=== PATIENT | female | born 1970 | race Hispanic/Latino ===

== ENCOUNTER 2017-04-05 23:11 | Emergency (ER) | payer OTHER, MEDICARE ==
[~2017-04-05 23:11] MED LIST: AMLO10TA2 PO; ASPI-1181 PO; CALC-866 PO; CYCL10TA7 PO; DIPH50CA4 PO; ESCI20TA36 PO; FERR-82 PO; HYDR25TA PO; LEVO112T7 PO; LISI40TA4 PO; METF-526 PO; SIMV20TA6 PO; TAMS0.4C32 PO; TRAM50TA4 PO; ZOLP10TA6 PO
[2017-07-09] MEDS ORDERED: NAPR-1023 PO (09:07)
== END 2017-04-05 23:54 | disposition home or self-care (01) ==
LOC: EDH 23:11
DX: H60.532 Acute contact otitis externa, left ear (principal); I10 Essential (primary) hypertension; E78.5 Hyperlipidemia, unspecified; E03.9 Hypothyroidism, unspecified; Z88.6 Allergy status to analgesic agent

== ENCOUNTER 2017-07-11 05:51 | Day surgery (SDC) | payer OTHER, MEDICARE ==
[2017-07-09 08:48] VITALS: BP 128/67
[2017-07-11] VITALS (16 sets, daily range): BP systolic 98–127; BP diastolic 51–78
[~2017-07-11] VITALS: Ht 156.2 cm; Wt 137.3 kg
[~2017-07-11 05:51] MED LIST changes: +CEFAZOLIN SODIUM 1 GM VIAL IVP SCH; -CYCL10TA7 PO; -DIPH50CA4 PO; -FERR-82 PO; -METF-526 PO; +NAPR-1023 PO; -TAMS0.4C32 PO
[2017-07-11] MEDS ORDERED: LACTATED RINGERS 1000ML 1,000 ML IV ONE (06:14)
[2017-07-11] MEDS ORDERED: LIDOCAINE HCL-MPF 0.5% 50ML VIAL IJ ONE (06:51)
[2017-07-11] MEDS ORDERED: ONDANSETRON HCL 4 MG/2 ML VIAL ONE (06:52)
[2017-07-11] MEDS ORDERED: NEOSTIGMINE 5MG/5ML SYR IV ONE (06:52)
[2017-07-11] MEDS ORDERED: GLYCOPYRROLATE 0.2 MG/ML 5 ML VIAL ONE (06:52)
[2017-07-11] MEDS ORDERED: LIDOCAINE PF 2% 5ML ABBOJECT ONE (06:52)
[2017-07-11] MEDS ORDERED: DEXAMETHASONE SOD PHOSPHATE 10MG/ML 1ML VIAL ONE (06:52)
[2017-07-11] MEDS ORDERED: MIDAZOLAM HCL 1 MG/ML 2ML VIAL ONE (06:53)
[2017-07-11] MEDS ORDERED: PROPOFOL 10 MG/ML 20ML VIAL IV ONE (06:53)
[2017-07-11] MEDS ORDERED: FENTANYL CITRATE PF 50 MCG/1 ML 2ML VIAL ONE ×2 (06:54→07:43)
[2017-07-11] MEDS ORDERED: ONDANSETRON HCL MDV 20ML 2 MG/ML VIAL ONE (07:17)
== END 2017-07-11 09:55 | disposition home or self-care (01) ==
LOC: DAH 05:51
PROVIDERS: ATTEND Neurological Surgery
DX: G56.01 Carpal tunnel syndrome, right upper limb (principal); G47.33 Obstructive sleep apnea (adult) (pediatric); E66.01 Morbid (severe) obesity due to excess calories; I10 Essential (primary) hypertension; M19.90 Unspecified osteoarthritis, unspecified site; F41.9 Anxiety disorder, unspecified; E03.9 Hypothyroidism, unspecified; Z79.899 Other long term (current) drug therapy; Z87.442 Personal history of urinary calculi; Z79.82 Long term (current) use of aspirin
CPT/HCPCS: 64721; 81025; A4218; J0690; J1100; J2001; J2250; J2405; J2704; J2710; J3010 ×2; J3490 ×2; J7120

== ENCOUNTER 2017-08-15 05:56 | Day surgery (SDC) | payer OTHER, MEDICARE ==
[2017-08-10 14:42] VITALS: BP 143/67
[2017-08-15] VITALS (12 sets, daily range): BP systolic 95–137; BP diastolic 44–86
[~2017-08-15] VITALS: Ht 152.4 cm; Wt 136.7 kg
[~2017-08-15 05:56] MED LIST changes: -CEFAZOLIN SODIUM 1 GM VIAL IVP SCH; -NAPR-1023 PO
[2017-08-15] MEDS ORDERED: CEFAZOLIN SODIUM 1 GM VIAL ONE (06:28)
[2017-08-15] MEDS ORDERED: LACTATED RINGERS 1000ML 1,000 ML IV ONE (06:28)
[2017-08-15] MEDS ORDERED: PROPOFOL 10 MG/ML 20ML VIAL IV ONE (07:16)
[2017-08-15] MEDS ORDERED: MIDAZOLAM HCL 1 MG/ML 2ML VIAL ONE (07:16)
[2017-08-15] MEDS ORDERED: FENTANYL CITRATE PF 50 MCG/1 ML 2ML VIAL ONE (07:17)
[2017-08-15] MEDS ORDERED: LIDOCAINE HCL MDV 0.5% 50ML VIAL IJ ONE (07:20)
[2017-08-15] MEDS ORDERED: WATER FOR INJECTION,STERILE 20 ML VIAL IJ ONE (08:00)
[2017-08-15] MEDS ORDERED: CEFAZOLIN SODIUM 1 GM VIAL IVP ONE (08:00)
== END 2017-08-15 09:30 | disposition home or self-care (01) ==
LOC: DAH 05:56
PROVIDERS: ATTEND Neurological Surgery
DX: G56.02 Carpal tunnel syndrome, left upper limb (principal); M19.90 Unspecified osteoarthritis, unspecified site; E11.9 Type 2 diabetes mellitus without complications; I10 Essential (primary) hypertension; E66.01 Morbid (severe) obesity due to excess calories; E66.9 Obesity, unspecified; Z79.899 Other long term (current) drug therapy; Z87.442 Personal history of urinary calculi; Z79.82 Long term (current) use of aspirin; Z68.43 Body mass index [BMI] 50.0-59.9, adult
CPT/HCPCS: 64721; 81025; A4218; J0690; J2250; J2704; J3010; J3490; J7120

== ENCOUNTER 2017-09-07 00:37 | Emergency (ER) | payer OTHER, MEDICARE ==
[2017-09-07] MEDS ORDERED: ACETAMINOPHEN-CODEINE 300/30MG TAB ONE (01:24)
== END 2017-09-07 01:56 | disposition home or self-care (01) ==
LOC: EDH 00:37
DX: S90.31XA Contusion of right foot, initial encounter (principal); E78.5 Hyperlipidemia, unspecified; I10 Essential (primary) hypertension; E03.9 Hypothyroidism, unspecified; Z87.442 Personal history of urinary calculi; Z90.49 Acquired absence of other specified parts of digestive tract; Z88.6 Allergy status to analgesic agent; Z98.890 Other specified postprocedural states; W20.8XXA Other cause of strike by thrown, projected or falling object, initial encounter; Y93.89 Activity, other specified; Y92.098 Other place in other non-institutional residence as the place of occurrence of the external cause; Y99.8 Other external cause status
CPT/HCPCS: 73630

== ENCOUNTER 2017-09-13 17:42 | Emergency (ER) | payer OTHER, MEDICARE | END 2017-09-13 18:14 | disposition home or self-care (01) | LOC: EDH 17:42 | DX: S90.31XA Contusion of right foot, initial encounter (principal); E78.5 Hyperlipidemia, unspecified; I10 Essential (primary) hypertension; E03.9 Hypothyroidism, unspecified; Z90.49 Acquired absence of other specified parts of digestive tract; Z88.6 Allergy status to analgesic agent; W20.8XXA Other cause of strike by thrown, projected or falling object, initial encounter; Y93.89 Activity, other specified; Y92.89 Other specified places as the place of occurrence of the external cause; Y99.8 Other external cause status | CPT/HCPCS: 99282 ==

== ENCOUNTER 2018-06-15 17:08 | Emergency (ER) | payer OTHER, MEDICARE ==
[~2018-06-15 17:08] MED LIST changes: -AMLO10TA2 PO; +AMLO10TA7 PO
[2018-06-15] MEDS ORDERED: ACETAMINOPHEN EXTRA STRENGTH 500 MG TABLET ONE (17:47)
[2018-06-15] MEDS ORDERED: DEXAMETHASONE SOD PHOSPHATE 10MG/ML 1ML VIAL ONE (17:47)
[2018-06-17] MEDS ORDERED: REGADENOSON 0.4 MG/5 ML PF SYG IVP SCH (11:00)
== END 2018-06-15 18:08 | disposition home or self-care (01) ==
LOC: EDH 17:08
DX: M54.31 Sciatica, right side (principal); E78.5 Hyperlipidemia, unspecified; I10 Essential (primary) hypertension; E03.9 Hypothyroidism, unspecified; Z87.442 Personal history of urinary calculi; Z90.49 Acquired absence of other specified parts of digestive tract; Z88.6 Allergy status to analgesic agent
CPT/HCPCS: 96372; 99283; J1100

== ENCOUNTER 2018-07-10 23:14 | Emergency (ER) | payer OTHER, MEDICARE ==
[2018-07-11] MEDS ORDERED: ACETAMINOPHEN-CODEINE 300/30MG TAB ONE (00:55)
== END 2018-07-11 01:07 | disposition home or self-care (01) ==
LOC: EDH 23:14
DX: S63.681A Other sprain of right thumb, initial encounter (principal); S63.591A Other specified sprain of right wrist, initial encounter; E78.5 Hyperlipidemia, unspecified; E03.9 Hypothyroidism, unspecified; I10 Essential (primary) hypertension; F41.9 Anxiety disorder, unspecified; F32.9 Major depressive disorder, single episode, unspecified; Z98.890 Other specified postprocedural states; W18.39XA Other fall on same level, initial encounter; Z88.6 Allergy status to analgesic agent; Y93.01 Activity, walking, marching and hiking; Y92.481 Parking lot as the place of occurrence of the external cause; Y99.8 Other external cause status
CPT/HCPCS: 73090; 73130

== ENCOUNTER → 2018-08-26 | Outpatient (CLI) | payer OTHER, MEDICARE | END | disposition home or self-care (01) | LOC: RAH 08:23 | PROVIDERS: ATTEND Orthopaedic Surgery | DX: S83.241A Other tear of medial meniscus, current injury, right knee, initial encounter (principal); M25.461 Effusion, right knee; X58.XXXA Exposure to other specified factors, initial encounter; Y93.89 Activity, other specified; Y92.89 Other specified places as the place of occurrence of the external cause; Y99.8 Other external cause status | CPT/HCPCS: 73721 ==

== ENCOUNTER 2018-10-18 06:50 | Day surgery (SDC) | payer OTHER, MEDICARE ==
[2018-10-17 15:01] VITALS: BP 119/70
[2018-10-17 15:03] LABS: BASOPHILS % (AUTO) 0.5 % (0.0-5.0); EOSINOPHILS % (AUTO) 1.1 % (0.0-8.0); HEMATOCRIT 40.6 % (36-48); LYMPHOCYTES % (AUTO) 16.1 % (21.0-51.0); MEAN CORPUSCULAR HEMOGLOBIN 26.1 pg (27.0-33.0); MEAN CORPUSCULAR HGB CONC 32.5 g/dL (32.0-36.0); MEAN CORPUSCULAR VOLUME 80.2 fL (79-99); MONOCYTES % (AUTO) 5.5 % (3.0-13.0); NEUTROPHILS % (AUTO) 76.8 % (40.0-77.0); PLATELET COUNT (AUTO) 308 K/uL (130-400); RED BLOOD CELL COUNT(AUTO) 5.06 MIL/uL (4.00-5.50); RED CELL DISTRIBUTION WIDTH 15.3 % (11.0-15.5); WHITE BLOOD COUNT (AUTO) 8.9 K/uL (4.8-10.8)
[2018-10-17 15:19] LABS: CREATININE 0.9 mg/dL (0.5-1.5); POTASSIUM 3.6 mmol/L (3.5-5.1)
[~2018-10-18] VITALS: Ht 149.9 cm; Wt 134.4 kg
[2018-10-18] VITALS (23 sets, daily range): BP systolic 111–162; BP diastolic 55–83
[~2018-10-18 06:50] MED LIST changes: -CALC-866 PO; -ESCI20TA36 PO; +FLUO-126 PO; +OLOP2.5D5 OU
--- NOTE | 2018-10-18 07:20 | NUR ---
POTENTIAL FOR INFECTION: SHAVED ABDOMEN PER NELDA ORDOÑEZ. Addendum: 10/18/18 at 0830 by REGLA HUNTER RN RN CORRECTION: SHAVED RIGHT KNEE / LEG PER CATRINA ORDOÑEZ MA, FOLLOWED BY WIPING WITH JUANITO: 2 % CHLORHEXIDINE GLUCONATE CLOTH PATIENTS PRE-OP SKIN PREP.
[2018-10-18] MEDS ORDERED: LIDOCAINE PF 2% 5ML ABBOJECT ONE (07:39)
[2018-10-18] MEDS ORDERED: ROCURONIUM 10MG/1ML SYR 10 MG/ML ML ONE (07:39)
[2018-10-18] MEDS ORDERED: SUCCINYLCHOLINE 200MG/10ML SYR ONE (07:39)
[2018-10-18] MEDS ORDERED: FENTANYL CITRATE PF 50 MCG/1 ML 2ML VIAL ONE (07:39)
[2018-10-18] MEDS ORDERED: PROPOFOL 10 MG/ML 20ML VIAL IV ONE ×2 (07:39→09:28)
[2018-10-18] MEDS ORDERED: CEFAZOLIN SODIUM 1 GM VIAL ONE (07:58)
[2018-10-18] MEDS ORDERED: LACTATED RINGERS 1000ML 1,000 ML IV ONE (07:58)
[2018-10-18] MEDS ORDERED: CEFAZOLIN 3GM /D5W 100ML 100 ML IV PRN (08:00)
[2018-10-18] MEDS ORDERED: EPHEDRINE SULFATE 50 MG/ML AMPULE ONE (09:06)
[2018-10-18] MEDS ORDERED: GLYCOPYRROLATE 1 MG/5 ML SYRINGE ONE (09:19)
[2018-10-18] MEDS ORDERED: NEOSTIGMINE 5MG/5ML SYR IV ONE ×2 (09:19→09:23)
[2018-10-18] MEDS ORDERED: ONDANSETRON HCL 4 MG/2 ML VIAL ONE (09:20)
[2018-10-18] MEDS ORDERED: MELO-108 PO (09:40)
[2018-10-18] MEDS ORDERED: TRAM50TA4 PO (09:40)
[2018-10-18] MEDS ORDERED: CEPH500B PO (09:40)
[2018-10-18] MEDS ORDERED: MEPERIDINE-PF 25 MG/ML SYG ONE (10:18)
--- NOTE | 2018-10-18 11:05 | NUR ---
RECEIVE PT RECEIVED FROM PACU VIA STRETCHER AWAKE ALERT ORIENTED X3. PT STABLE. NO COMPLAINTS MADE. NOT IN ANY APPARENT DISTRESS. DRESSING TO RIGHT KNEE DRY AND INTACT, NO OOZING OR BLEEDING NOTED. RT KNEE ELEVATED WITH PILLOW. CALL RUTH WITHIN [facility]HRO[facility] FOR FAMILY TO COME IN TO ROOM.
--- NOTE | 2018-10-18 11:50 | NUR ---
DISCHARGE PT DISCHARGED VIA WHEELCHAIR WITH DAUGHTER. PT STABLE. DRESSING TO RIGHT KNEE REMAINS DRY AND INTACT, NO OOZING NOTED, CRUTCHES PROVIDED. DISCHARGE INSTRUCTIONS GIVEN TO DAUGHTER AND PT. BOTH VERBALIZED UNDERSTANDING.
== END 2018-10-18 11:50 | disposition home or self-care (01) ==
LOC: DAH 06:50
PROVIDERS: ATTEND Orthopaedic Surgery
DX: M94.261 Chondromalacia, right knee (principal); E03.9 Hypothyroidism, unspecified; I10 Essential (primary) hypertension; F41.9 Anxiety disorder, unspecified; F32.9 Major depressive disorder, single episode, unspecified; H91.90 Unspecified hearing loss, unspecified ear; Z90.49 Acquired absence of other specified parts of digestive tract; Z98.890 Other specified postprocedural states; G89.29 Other chronic pain; G47.30 Sleep apnea, unspecified; Z99.89 Dependence on other enabling machines and devices; E66.01 Morbid (severe) obesity due to excess calories; Z79.82 Long term (current) use of aspirin; Z79.899 Other long term (current) drug therapy
CPT/HCPCS: 29870; 36415; 80048; 82948; 84703; 85025; A4606; A4649 ×2; A4930; A6223; J0330; J0690; J2001; J2175; J2405; J2704 ×2; J2710 ×2; J3010; J3490 ×2; J7120

== ENCOUNTER 2018-12-05 21:57 | Emergency (ER) | payer OTHER, MEDICARE ==
[~2018-12-05 21:57] MED LIST changes: +CEPH500B PO; +MELO-108 PO
[2018-12-05 22:29] LABS: BASOPHILS % (AUTO) 1.2 % (0.0-5.0); EOSINOPHILS % (AUTO) 1.8 % (0.0-8.0); LYMPHOCYTES % (AUTO) 23.7 % (21.0-51.0); MEAN CORPUSCULAR HEMOGLOBIN 25.7 pg (27.0-33.0); MEAN CORPUSCULAR HGB CONC 32.8 g/dL (32.0-36.0); MEAN CORPUSCULAR VOLUME 78.4 fL (79-99); MONOCYTES % (AUTO) 8.1 % (3.0-13.0); NEUTROPHILS % (AUTO) 65.2 % (40.0-77.0); PLATELET COUNT (AUTO) 290 K/uL (130-400); RED BLOOD CELL COUNT(AUTO) 4.34 MIL/uL (4.00-5.50); RED CELL DISTRIBUTION WIDTH 16.2 % (11.0-15.5); WHITE BLOOD COUNT (AUTO) 7.4 K/uL (4.8-10.8)
[2018-12-05 22:36] LABS: CREATININE 0.8 mg/dL (0.5-1.5); POTASSIUM 3.3 mmol/L (3.5-5.1)
[2018-12-05 22:42] LABS: ALBUMIN 3.4 g/dL (3.5-5.0); BILIRUBIN,TOTAL 0.2 mg/dL (0.2-1.0); TOTAL PROTEIN, SERUM 7.5 g/dL (6.0-8.3)
[2018-12-05 22:47] LABS: CREATINE KINASE, TOTAL 64 U/L (21-232); MYOGLOBIN 18 ng/mL (10-92); TROPONIN I < 0.04 ng/mL (0.00-0.06)
[2018-12-05] MEDS ORDERED: DiphenhydrAMINE HCL 50 MG/ML VIAL ONE (22:52)
[2018-12-05] MEDS ORDERED: ACETAMINOPHEN EXTRA STRENGTH 500 MG TABLET ONE (22:52)
[2018-12-05] MEDS ORDERED: ASPIRIN 325 MG TABLET ONE (23:40)
== END 2018-12-06 01:49 | disposition home or self-care (01) ==
LOC: EDH 21:57
DX: R07.89 Other chest pain (principal); R06.02 Shortness of breath; R11.0 Nausea; G89.29 Other chronic pain; M25.561 Pain in right knee; F41.9 Anxiety disorder, unspecified; F32.9 Major depressive disorder, single episode, unspecified; E78.5 Hyperlipidemia, unspecified; I10 Essential (primary) hypertension; E03.9 Hypothyroidism, unspecified; Z88.6 Allergy status to analgesic agent; Z90.49 Acquired absence of other specified parts of digestive tract; Z98.890 Other specified postprocedural states
CPT/HCPCS: 36415; 71046; 80053; 81025; 82550; 83874; 84484 ×2; 85025; 85378; 87804 ×2; 93005 ×2; 96374; 99285; J1200

== ENCOUNTER → 2018-12-31 | Outpatient (CLI) | payer OTHER, MEDICARE ==
[~2018-12-31] VITALS: Ht 152.4 cm; Wt 132.9 kg
[~2018-12-31] MED LIST changes: +REGADENOSON 0.4 MG/5 ML PF SYG IVP SCH; +SIMV-43 PO; -SIMV20TA6 PO
== END | disposition home or self-care (01) ==
LOC: SHCH 08:14
PROVIDERS: ATTEND Internal Medicine Cardiovascular Disease
DX: R07.9 Chest pain, unspecified (principal); I10 Essential (primary) hypertension
CPT/HCPCS: 78452; 93017; 96374; A9500 ×2; J2785

== ENCOUNTER → 2020-02-19 | Outpatient (CLI) | payer OTHER, MEDICARE ==
[~2020-02-19] MED LIST changes: +AMLO-258 PO; -AMLO10TA7 PO; -ASPI-1181 PO; +ASPI-1443 PO; -FLUO-126 PO; +FLUO20CA35 PO; -REGADENOSON 0.4 MG/5 ML PF SYG IVP SCH
== END | disposition home or self-care (01) ==
LOC: RAH 10:54
PROVIDERS: ATTEND Internal Medicine Gastroenterology
DX: K31.84 Gastroparesis (principal); R10.13 Epigastric pain
CPT/HCPCS: 78264; A9541

== ENCOUNTER → 2020-04-22 | Outpatient (CLI) | payer OTHER, MEDICARE ==
[~2020-04-22] MED LIST changes: -LISI40TA4 PO; +LISI40TA9 PO
== END | disposition home or self-care (01) ==
LOC: RAH 10:48
PROVIDERS: ATTEND Internal Medicine
DX: M19.011 Primary osteoarthritis, right shoulder (principal); M47.812 Spondylosis without myelopathy or radiculopathy, cervical region
CPT/HCPCS: 72040; 73030

== ENCOUNTER 2020-10-25 19:19 | Emergency (ER) | payer OTHER, MEDICARE ==
[~2020-10-25] VITALS: Ht 152.4 cm; Wt 120.7 kg
[2020-10-25] MEDS: LIDOCAINE HCL 2% VISCOUS 15 ML UDCUP PO ONE (21:16)
[2020-10-25] MEDS: MAG/ALUM/SIMETH 30 ML UDCUP PO ONE (21:16)
[2020-10-25 21:28] VITALS: BP 116/68
== END 2020-10-25 22:25 | disposition home or self-care (01) ==
LOC: EDH 19:19
DX: B34.9 Viral infection, unspecified (principal); Z20.822 Contact with and (suspected) exposure to COVID-19; I10 Essential (primary) hypertension; M19.90 Unspecified osteoarthritis, unspecified site; Z79.899 Other long term (current) drug therapy
CPT/HCPCS: 87635; 87804 ×2; 87880; 99283; C9803

== ENCOUNTER 2021-06-16 06:07 | Day surgery (SDC) | payer OTHER, MEDICARE ==
[2021-06-14 09:38] LABS: BASOPHILS % (AUTO) 0.7 % (0.0-5.0); EOSINOPHILS % (AUTO) 2.8 % (0.0-8.0); LYMPHOCYTES % (AUTO) 22.4 % (21.0-51.0); MEAN CORPUSCULAR HEMOGLOBIN 23.5 pg (27.0-33.0); MEAN CORPUSCULAR VOLUME 78.5 fL (79-99); MONOCYTES % (AUTO) 6.3 % (3.0-13.0); NEUTROPHILS % (AUTO) 67.5 % (40.0-77.0); PLATELET COUNT (AUTO) 310 K/uL (130-400); RED BLOOD CELL COUNT(AUTO) 4.97 MIL/uL (4.00-5.50); RED CELL DISTRIBUTION WIDTH 15.9 % (11.0-15.5); WHITE BLOOD COUNT (AUTO) 6.8 K/uL (4.8-10.8)
[2021-06-14 09:48] LABS: CREATININE 0.7 mg/dL (0.5-1.5); POTASSIUM 3.2 mmol/L (3.5-5.1)
[2021-06-15 09:29] VITALS: BP 164/84
[2021-06-16] VITALS (17 sets, daily range): BP systolic 42–155; BP diastolic 64–76
[~2021-06-16] VITALS: Ht 152.4 cm; Wt 125.7 kg
[2021-06-16] MEDS: CEFAZOLIN SODIUM 1 GM VIAL IVP SCH ×2 (06:00→08:30)
[~2021-06-16 06:07] MED LIST changes: +FERS325 PO; -FLUO20CA35 PO; +FLUO20CA36 PO; +LINA72CA PO; -MELO-108 PO; +METO5TAB2 PO; -OLOP2.5D5 OU; +OMEP20CA12 PO; -TRAM50TA4 PO
[2021-06-16] MEDS ORDERED: LACTATED RINGERS 1000ML 1,000 ML IV ONE (06:14)
[2021-06-16] MEDS ORDERED: LIDOCAINE PF 100MG/5ML (2%) SYRINGE 5ML ONE (07:27)
[2021-06-16] MEDS ORDERED: PROPOFOL 10 MG/ML 20ML VIAL IV ONE (07:28)
[2021-06-16] MEDS ORDERED: ONDANSETRON 4MG INJ ONE (07:28)
[2021-06-16] MEDS ORDERED: ROCURONIUM 10MG/1ML SYR 10 MG/ML ML ONE ×2 (07:28→07:51)
[2021-06-16] MEDS ORDERED: FENTANYL CITRATE PF 50 MCG/1 ML 5ML AMP IV ONE (07:28)
[2021-06-16] MEDS ORDERED: MIDAZOLAM HCL 1 MG/ML 2ML VIAL ONE (07:48)
[2021-06-16] MEDS ORDERED: EPINEPHRINE 1 MG/ML 30ML VIAL IJ ONE (08:00)
[2021-06-16] MEDS ORDERED: DEXAMETHASONE SOD PHOSPHATE 10MG/ML 1ML VIAL ONE (08:04)
[2021-06-16] MEDS ORDERED: ROPIVACAINE 0.5% 5MG/ML 30ML IJ ONE (08:04)
[2021-06-16] MEDS ORDERED: GLYCOPYRROLATE 1 MG/5 ML SYRINGE ONE (11:17)
[2021-06-16] MEDS ORDERED: NEOSTIGMINE 5MG/5ML SYR IV ONE (11:18)
[2021-06-16] MEDS ORDERED: FENTANYL CITRATE PF 50 MCG/1 ML 2ML VIAL ONE (11:26)
[2021-06-16] MEDS ORDERED: HYDR-4060 PO (11:37)
[2021-06-16] MEDS ORDERED: CEPH500B PO (11:37)
[2021-06-16] MEDS ORDERED: MEPERIDINE-PF 25 MG/ML SYG ONE (11:48)
[2021-06-16] MEDS ORDERED: ACETAMINOPHEN 500 MG TABLET ONE (12:38)
== END 2021-06-16 13:25 | disposition home or self-care (01) ==
LOC: DAH 06:07
PROVIDERS: ATTEND Orthopaedic Surgery
DX: M75.121 Complete rotator cuff tear or rupture of right shoulder, not specified as traumatic (principal); M19.011 Primary osteoarthritis, right shoulder; M75.41 Impingement syndrome of right shoulder; M75.21 Bicipital tendinitis, right shoulder; M65.811 Other synovitis and tenosynovitis, right shoulder; G89.29 Other chronic pain; I10 Essential (primary) hypertension; K21.9 Gastro-esophageal reflux disease without esophagitis; E66.01 Morbid (severe) obesity due to excess calories; G47.00 Insomnia, unspecified; F41.9 Anxiety disorder, unspecified; E03.9 Hypothyroidism, unspecified; E78.00 Pure hypercholesterolemia, unspecified; F32.A Depression, unspecified; Z98.890 Other specified postprocedural states; Z90.49 Acquired absence of other specified parts of digestive tract; Z98.84 Bariatric surgery status; Z79.899 Other long term (current) drug therapy
CPT/HCPCS: 29824; 29826; 29827; 36415 ×2; 64415; 76942; 80048; 84132; 84703; 85025; 87635; A4215; A4221; A4222; A4223; A4565; A4649 ×3; A4663; A6204; C1713 ×2; C9803; G0168; J0171; J0690 ×2; J1100; J2001; J2175; J2250; J2405; J2704; J2710; J2795; J3010 ×2; J3490; J7030; J7120

== ENCOUNTER → 2021-10-25 | Outpatient (CLI) | payer OTHER, MEDICARE ==
[~2021-10-25] MED LIST changes: +HYDR-4060 PO
== END | disposition home or self-care (01) ==
LOC: RAH 13:00
PROVIDERS: ATTEND Internal Medicine
DX: M43.16 Spondylolisthesis, lumbar region (principal); M54.50 Low back pain, unspecified; M43.17 Spondylolisthesis, lumbosacral region
CPT/HCPCS: 72100

== ENCOUNTER 2022-05-05 15:12 | Emergency (ER) | payer OTHER, MEDICARE ==
[~2022-05-05] VITALS: Ht 152.4 cm; Wt 131.1 kg
[~2022-05-05 15:12] MED LIST changes: -CEPH500B PO; -FERS325 PO; -HYDR-4060 PO; -HYDR25TA PO; +LEVO-70 PO; +MELO-108 PO; +METR-172 PO
[2022-05-05 15:14] VITALS: BP 136/94
[2022-05-08] MEDS ORDERED: CELE-84 PO (17:38)
[2022-05-08] MEDS ORDERED: ONDA4TAB10 PO (17:38)
== END 2022-05-05 17:41 | disposition left against medical advice (07) ==
LOC: EDH 15:12
DX: K64.9 Unspecified hemorrhoids (principal); Z53.21 Procedure and treatment not carried out due to patient leaving prior to being seen by health care provider

== ENCOUNTER → 2022-06-06 | Outpatient (CLI) | payer OTHER, MEDICARE ==
[~2022-06-06] MED LIST changes: +CELE-84 PO; -LEVO-70 PO; +LIDOCAINE HCL 4% LTA SOL 4 ML VIAL TP ONE; -METR-172 PO
== END | disposition home or self-care (01) ==
LOC: WHH 08:40
PROVIDERS: ATTEND Family Medicine
DX: T81.89XA Other complications of procedures, not elsewhere classified, initial encounter (principal); S31.829A Unspecified open wound of left buttock, initial encounter; I10 Essential (primary) hypertension; E78.2 Mixed hyperlipidemia; E11.9 Type 2 diabetes mellitus without complications; E03.9 Hypothyroidism, unspecified; M19.90 Unspecified osteoarthritis, unspecified site; F41.9 Anxiety disorder, unspecified; F32.A Depression, unspecified; E66.01 Morbid (severe) obesity due to excess calories; Z68.43 Body mass index [BMI] 50.0-59.9, adult; Z79.82 Long term (current) use of aspirin; Z79.899 Other long term (current) drug therapy; Z90.49 Acquired absence of other specified parts of digestive tract; Z96.651 Presence of right artificial knee joint; Y83.8 Other surgical procedures as the cause of abnormal reaction of the patient, or of later complication, without mention of misadventure at the time of the procedure; X58.XXXA Exposure to other specified factors, initial encounter; Y93.89 Activity, other specified; Y92.238 Other place in hospital as the place of occurrence of the external cause; Y99.8 Other external cause status
CPT/HCPCS: 11042; 11045; A4450

== ENCOUNTER → 2022-06-13 | Outpatient (CLI) | payer OTHER, MEDICARE | END | disposition home or self-care (01) | LOC: WHH 08:16 | PROVIDERS: ATTEND Family Medicine | DX: T81.89XD Other complications of procedures, not elsewhere classified, subsequent encounter (principal); S31.829D Unspecified open wound of left buttock, subsequent encounter; I10 Essential (primary) hypertension; E78.2 Mixed hyperlipidemia; E03.9 Hypothyroidism, unspecified; E11.9 Type 2 diabetes mellitus without complications; E66.01 Morbid (severe) obesity due to excess calories; M19.90 Unspecified osteoarthritis, unspecified site; F41.9 Anxiety disorder, unspecified; F32.A Depression, unspecified; Z68.43 Body mass index [BMI] 50.0-59.9, adult; Z79.82 Long term (current) use of aspirin; Z79.899 Other long term (current) drug therapy; Z90.49 Acquired absence of other specified parts of digestive tract; Z96.651 Presence of right artificial knee joint; X58.XXXD Exposure to other specified factors, subsequent encounter; Y83.8 Other surgical procedures as the cause of abnormal reaction of the patient, or of later complication, without mention of misadventure at the time of the procedure | CPT/HCPCS: G0463 ==

== ENCOUNTER → 2022-06-27 | Outpatient (CLI) | payer OTHER, MEDICARE | END | disposition home or self-care (01) | LOC: WHH 08:08 | PROVIDERS: ATTEND Family Medicine | DX: T81.89XD Other complications of procedures, not elsewhere classified, subsequent encounter (principal); S31.829D Unspecified open wound of left buttock, subsequent encounter; I10 Essential (primary) hypertension; E78.2 Mixed hyperlipidemia; E03.9 Hypothyroidism, unspecified; E11.9 Type 2 diabetes mellitus without complications; E66.01 Morbid (severe) obesity due to excess calories; M19.90 Unspecified osteoarthritis, unspecified site; F41.9 Anxiety disorder, unspecified; F32.A Depression, unspecified; Z68.43 Body mass index [BMI] 50.0-59.9, adult; Z79.82 Long term (current) use of aspirin; Z79.899 Other long term (current) drug therapy; Z90.49 Acquired absence of other specified parts of digestive tract; Z96.651 Presence of right artificial knee joint; X58.XXXD Exposure to other specified factors, subsequent encounter; Y83.8 Other surgical procedures as the cause of abnormal reaction of the patient, or of later complication, without mention of misadventure at the time of the procedure | CPT/HCPCS: G0463; A6248; A4450 ==

== ENCOUNTER → 2022-07-04 | Outpatient (CLI) | payer OTHER, MEDICARE ==
[~2022-07-04] MED LIST changes: -LIDOCAINE HCL 4% LTA SOL 4 ML VIAL TP ONE
== END | disposition home or self-care (01) ==
LOC: WHH 08:12
PROVIDERS: ATTEND Nurse Practitioner Family
DX: T81.89XD Other complications of procedures, not elsewhere classified, subsequent encounter (principal); S31.829D Unspecified open wound of left buttock, subsequent encounter; I10 Essential (primary) hypertension; E78.2 Mixed hyperlipidemia; E03.9 Hypothyroidism, unspecified; E11.9 Type 2 diabetes mellitus without complications; E66.01 Morbid (severe) obesity due to excess calories; M19.90 Unspecified osteoarthritis, unspecified site; F41.9 Anxiety disorder, unspecified; F32.A Depression, unspecified; Z68.43 Body mass index [BMI] 50.0-59.9, adult; Z79.82 Long term (current) use of aspirin; Z79.899 Other long term (current) drug therapy; Z90.49 Acquired absence of other specified parts of digestive tract; Z96.651 Presence of right artificial knee joint; X58.XXXD Exposure to other specified factors, subsequent encounter; Y83.8 Other surgical procedures as the cause of abnormal reaction of the patient, or of later complication, without mention of misadventure at the time of the procedure
CPT/HCPCS: G0463

== ENCOUNTER → 2022-07-11 | Outpatient (CLI) | payer OTHER, MEDICARE ==
[~2022-07-11] MED LIST changes: +LIDOCAINE HCL 4% LTA SOL 4 ML VIAL TP ONE
== END | disposition home or self-care (01) ==
LOC: WHH 09:49
PROVIDERS: ATTEND Nurse Practitioner Family
DX: T81.89XD Other complications of procedures, not elsewhere classified, subsequent encounter (principal); S31.829D Unspecified open wound of left buttock, subsequent encounter; I10 Essential (primary) hypertension; E78.2 Mixed hyperlipidemia; E03.9 Hypothyroidism, unspecified; E11.9 Type 2 diabetes mellitus without complications; E66.01 Morbid (severe) obesity due to excess calories; M19.90 Unspecified osteoarthritis, unspecified site; F41.9 Anxiety disorder, unspecified; F32.A Depression, unspecified; Z68.43 Body mass index [BMI] 50.0-59.9, adult; Z79.82 Long term (current) use of aspirin; Z79.899 Other long term (current) drug therapy; Z90.49 Acquired absence of other specified parts of digestive tract; Z96.651 Presence of right artificial knee joint; X58.XXXD Exposure to other specified factors, subsequent encounter; Y83.8 Other surgical procedures as the cause of abnormal reaction of the patient, or of later complication, without mention of misadventure at the time of the procedure
CPT/HCPCS: G0463

== ENCOUNTER → 2022-07-18 | Outpatient (CLI) | payer OTHER, MEDICARE ==
[~2022-07-18] MED LIST changes: -LIDOCAINE HCL 4% LTA SOL 4 ML VIAL TP ONE
== END | disposition home or self-care (01) ==
LOC: WHH 10:05
PROVIDERS: ATTEND Nurse Practitioner Family
DX: T81.89XD Other complications of procedures, not elsewhere classified, subsequent encounter (principal); S31.829D Unspecified open wound of left buttock, subsequent encounter; I10 Essential (primary) hypertension; E78.2 Mixed hyperlipidemia; E03.9 Hypothyroidism, unspecified; E11.9 Type 2 diabetes mellitus without complications; E66.01 Morbid (severe) obesity due to excess calories; M19.90 Unspecified osteoarthritis, unspecified site; F41.9 Anxiety disorder, unspecified; F32.A Depression, unspecified; Z68.43 Body mass index [BMI] 50.0-59.9, adult; Z79.82 Long term (current) use of aspirin; Z79.899 Other long term (current) drug therapy; Z90.49 Acquired absence of other specified parts of digestive tract; Z96.651 Presence of right artificial knee joint; X58.XXXD Exposure to other specified factors, subsequent encounter; Y83.8 Other surgical procedures as the cause of abnormal reaction of the patient, or of later complication, without mention of misadventure at the time of the procedure
CPT/HCPCS: G0463; A4450

== ENCOUNTER → 2022-07-25 | Outpatient (CLI) | payer OTHER, MEDICARE ==
[~2022-07-25] MED LIST changes: +LIDOCAINE HCL 4% LTA SOL 4 ML VIAL TP ONE
== END | disposition home or self-care (01) ==
LOC: WHH 08:53
PROVIDERS: ATTEND Nurse Practitioner Family
DX: T81.89XD Other complications of procedures, not elsewhere classified, subsequent encounter (principal); S31.829D Unspecified open wound of left buttock, subsequent encounter; I10 Essential (primary) hypertension; E78.2 Mixed hyperlipidemia; E03.9 Hypothyroidism, unspecified; E11.9 Type 2 diabetes mellitus without complications; E66.01 Morbid (severe) obesity due to excess calories; M19.90 Unspecified osteoarthritis, unspecified site; F41.9 Anxiety disorder, unspecified; F32.A Depression, unspecified; Z68.43 Body mass index [BMI] 50.0-59.9, adult; Z79.82 Long term (current) use of aspirin; Z79.899 Other long term (current) drug therapy; Z90.49 Acquired absence of other specified parts of digestive tract; Z96.651 Presence of right artificial knee joint; X58.XXXD Exposure to other specified factors, subsequent encounter; Y83.8 Other surgical procedures as the cause of abnormal reaction of the patient, or of later complication, without mention of misadventure at the time of the procedure
CPT/HCPCS: G0463

== ENCOUNTER → 2022-08-01 | Outpatient (CLI) | payer OTHER, MEDICARE ==
[~2022-08-01] MED LIST changes: -LIDOCAINE HCL 4% LTA SOL 4 ML VIAL TP ONE
== END | disposition home or self-care (01) ==
LOC: WHH 09:04
PROVIDERS: ATTEND Nurse Practitioner Family
DX: T81.89XD Other complications of procedures, not elsewhere classified, subsequent encounter (principal); S31.829D Unspecified open wound of left buttock, subsequent encounter; I10 Essential (primary) hypertension; E78.2 Mixed hyperlipidemia; E03.9 Hypothyroidism, unspecified; E11.9 Type 2 diabetes mellitus without complications; E66.01 Morbid (severe) obesity due to excess calories; M19.90 Unspecified osteoarthritis, unspecified site; F41.9 Anxiety disorder, unspecified; F32.A Depression, unspecified; Z68.43 Body mass index [BMI] 50.0-59.9, adult; Z79.82 Long term (current) use of aspirin; Z79.899 Other long term (current) drug therapy; Z90.49 Acquired absence of other specified parts of digestive tract; Z96.651 Presence of right artificial knee joint; X58.XXXD Exposure to other specified factors, subsequent encounter; Y83.8 Other surgical procedures as the cause of abnormal reaction of the patient, or of later complication, without mention of misadventure at the time of the procedure
CPT/HCPCS: G0463

== ENCOUNTER 2022-08-20 09:50 | Emergency (ER) | payer OTHER, MEDICARE ==
[~2022-08-20] VITALS: Ht 152.4 cm; Wt 127.5 kg
[2022-08-20 10:39] LABS: EOSINOPHILS % (AUTO) 3.5 % (0.0-8.0); HEMATOCRIT 38.2 % (36-48); MEAN CORPUSCULAR HGB CONC 31.4 g/dL (32.0-36.0); MEAN CORPUSCULAR VOLUME 79.6 fL (79-99); NEUTROPHILS % (AUTO) 64.2 % (40.0-77.0); PLATELET COUNT (AUTO) 287 K/uL (130-400); RED CELL DISTRIBUTION WIDTH 14.8 % (11.0-15.5)
[2022-08-20 10:46] LABS: APPEARANCE,URINE CLEAR (CLEAR); BILIRUBIN,URINE NEGATIVE (NEGATIVE); COLOR,URINE LIGHT-YELLOW (YELLOW); GLUCOSE, URINE (UA) NEGATIVE (NEGATIVE); KETONES,URINE NEGATIVE (NEGATIVE); LEUKOCYTE ESTERASE ,URINE NEGATIVE Leu/uL (NEGATIVE); NITRATE,URINE NEGATIVE (NEGATIVE); OCCULT BLOOD,URINE SMALL (NEGATIVE); PROTEIN,URINE 10 mg/dL (NEGATIVE)
[2022-08-20 10:59] LABS: ALBUMIN 3.7 g/dL (3.5-5.0); CREATININE 0.8 mg/dL (0.5-1.5); POTASSIUM 3.6 mmol/L (3.5-5.1); TOTAL PROTEIN, SERUM 7.8 g/dL (6.0-8.3)
[2022-08-20 11:09] LABS: MUCUS,URINE RARE LPF (None Seen); RBC,URINE 26-50 /HPF (0-1); SQUAMOUS EPITHELIAL CELL,UR RARE /HPF (0-2)
[2022-08-20] MEDS ORDERED: 0.9%NACL 1000ML 1,000 ML IV ONE (12:30)
[2022-08-20] MEDS ORDERED: ONDANSETRON 4MG INJ IVP ONE (12:30)
[2022-08-20] MEDS ORDERED: MORPHINE 4 MG SYG IVP ONE (12:30)
[2022-08-20] MEDS ORDERED: TAMS-1 PO (14:45)
[2022-08-20] MEDS ORDERED: TAMSULOSIN HCL 0.4 MG CAP.ER.24H PO SCH (15:00)
[2022-08-20 16:07] VITALS: BP 132/74
== END 2022-08-20 16:09 | disposition home or self-care (01) ==
LOC: EDH 09:50
DX: R35.0 Frequency of micturition (principal); N13.2 Hydronephrosis with renal and ureteral calculous obstruction; K57.30 Diverticulosis of large intestine without perforation or abscess without bleeding; F41.9 Anxiety disorder, unspecified; F32.A Depression, unspecified; M19.90 Unspecified osteoarthritis, unspecified site; E03.9 Hypothyroidism, unspecified; Z90.49 Acquired absence of other specified parts of digestive tract; Z79.899 Other long term (current) drug therapy; Z98.890 Other specified postprocedural states; Z88.6 Allergy status to analgesic agent
CPT/HCPCS: 99285; 74176; 96374; 96361; 96375; 80053; 85025; 81001; 36415; J7030; J2405; J2270

== ENCOUNTER 2022-09-01 07:35 | Day surgery (SDC) | payer OTHER, MEDICARE ==
[2022-08-31 12:10] VITALS: BP 138/75
[2022-09-01] VITALS (17 sets, daily range): BP systolic 129–147; BP diastolic 60–83
[~2022-09-01] VITALS: Ht 152.4 cm; Wt 130.4 kg
[~2022-09-01 07:35] MED LIST changes: -CELE-84 PO; +CHOL500051 PO; +DOCU-116 PO; -LINA72CA PO; +MULT200T10 PO; -OMEP20CA12 PO; +TAMS-1 PO
[2022-09-01] MEDS ORDERED: CEFTRIAXONE 1G VIAL ONE (08:31)
[2022-09-01] MEDS ORDERED: LACTATED RINGERS 1000ML 1,000 ML IV ONE (08:31)
[2022-09-01] MEDS ORDERED: SUCCINYLCHOLINE CHLORIDE 20 MG/ML 10 ML VIAL ONE (10:21)
[2022-09-01] MEDS ORDERED: LIDOCAINE PF 100MG/5ML (2%) SYRINGE 5ML ONE (10:21)
[2022-09-01] MEDS ORDERED: DEXAMETHASONE SOD PHOSPHATE 10MG/ML 1ML VIAL ONE (10:21)
[2022-09-01] MEDS ORDERED: ONDANSETRON 4MG INJ ONE (10:22)
[2022-09-01] MEDS ORDERED: PROPOFOL 10 MG/ML 20ML VIAL IV ONE ×2 (10:22→10:24)
[2022-09-01] MEDS ORDERED: MIDAZOLAM HCL 1 MG/ML 2ML VIAL ONE (10:22)
[2022-09-01] MEDS ORDERED: GLYCOPYRROLATE 1 MG/5 ML SYRINGE ONE (10:22)
[2022-09-01] MEDS ORDERED: ROCURONIUM 10MG/1ML SYR 10 MG/ML ML ONE (10:22)
[2022-09-01] MEDS ORDERED: NEOSTIGMINE 5MG/5ML SYR IV ONE (10:22)
[2022-09-01] MEDS ORDERED: FENTANYL CITRATE PF 50 MCG/1 ML 2ML VIAL ONE (10:23)
[2022-09-01] MEDS ORDERED: CEFTRIAXONE 1G VIAL IVPB ONE (11:00)
[2022-09-01] MEDS ORDERED: IOHEXOL-350 50ML VIAL IV ONE (11:02)
[2022-09-01] MEDS ORDERED: SUCCINYLCHOLINE 200MG/10ML SYR ONE (11:24)
[2022-09-01] MEDS ORDERED: IPRATROPIUM/ALBUTEROL SULFATE 3 ML SOLUTION IH ONE (12:09)
[2022-09-01] MEDS ORDERED: IPRATROPIUM/ALBUTEROL SULFATE 3 ML SOLUTION IH SCH (12:30)
== END 2022-09-01 13:40 | disposition home or self-care (01) ==
LOC: DAH 07:35
PROVIDERS: ATTEND Urology
DX: N13.2 Hydronephrosis with renal and ureteral calculous obstruction (principal); I10 Essential (primary) hypertension; K21.9 Gastro-esophageal reflux disease without esophagitis; F32.A Depression, unspecified; G47.00 Insomnia, unspecified; E66.01 Morbid (severe) obesity due to excess calories; E78.00 Pure hypercholesterolemia, unspecified; E03.9 Hypothyroidism, unspecified; Z88.8 Allergy status to other drugs, medicaments and biological substances; Z90.49 Acquired absence of other specified parts of digestive tract; Z98.890 Other specified postprocedural states; Z20.822 Contact with and (suspected) exposure to COVID-19; Z79.899 Other long term (current) drug therapy; Z68.43 Body mass index [BMI] 50.0-59.9, adult
CPT/HCPCS: 87426; 52332; 52351; 81025; 74420; 94640; A6260; C1769 ×2; A4354; C1758 ×2; C2617; J7120; J3010; J0330 ×2; J3490; J1100; J2710; J2001; J0696 ×2; J2250; J2704 ×2; J2405; Q9967; A4358; A4215; A4223; A4222; A4221; A4510; A4600

== ENCOUNTER 2023-05-25 10:38 | Observation (INO) | payer OTHER, MEDICARE ==
[~2023-05-25] VITALS: Ht 152.4 cm; Wt 132.7 kg
[~2023-05-25 10:38] MED LIST changes: -ASPI-1443 PO
[2023-05-25 11:09] LABS: APPEARANCE,URINE CLEAR (CLEAR); BILIRUBIN,URINE 1 mg/dL (NEGATIVE); COLOR,URINE DARK-YELLOW (YELLOW); GLUCOSE, URINE (UA) NEGATIVE (NEGATIVE); KETONES,URINE NEGATIVE (NEGATIVE); LEUKOCYTE ESTERASE ,URINE NEGATIVE Leu/uL (NEGATIVE); NITRATE,URINE 1+ (NEGATIVE); OCCULT BLOOD,URINE SMALL (NEGATIVE); PH,URINE 6.5 (5.0-8.0); PROTEIN,URINE 10 mg/dL (NEGATIVE); UROBILINOGEN,URINE 3 mg/dL (0.2-1.0)
[2023-05-25 11:16] LABS: ADD UA MICROSCOPIC YES
[2023-05-25 11:19] LABS: MUCUS,URINE RARE LPF (None Seen); RBC,URINE 51-100 /HPF (0-1); SQUAMOUS EPITHELIAL CELL,UR RARE /HPF (0-2)
[2023-05-25 11:21] LABS: BASOPHILS # (AUTO) 0.05 K/uL (0.00-0.20); BASOPHILS % (AUTO) 0.6 % (0.0-5.0); EOSINOPHILS # (AUTO) 0.21 K/uL (0.00-0.70); EOSINOPHILS % (AUTO) 2.6 % (0.0-8.0); HEMATOCRIT 35.7 % (36-48); IMMATURE GRANULOCYTE ABSOLUTE 0.02 K/uL (0-1); LYMPHOCYTES # (AUTO) 1.5 K/uL (1.0-4.8); MEAN CORPUSCULAR HEMOGLOBIN 23.7 pg (27.0-33.0); MEAN CORPUSCULAR HGB CONC 31.7 g/dL (32.0-36.0); MONOCYTES # (AUTO) 0.6 K/uL (0.1-1.0); MONOCYTES % (AUTO) 7.5 % (3.0-13.0); NEUTROPHILS # (AUTO) 5.8 K/uL (1.8-7.7); NEUTROPHILS % (AUTO) 71.1 % (40.0-77.0); PLATELET COUNT (AUTO) 305 K/uL (130-400); RED BLOOD CELL COUNT(AUTO) 4.76 MIL/uL (4.00-5.50); RED CELL DISTRIBUTION WIDTH 16.3 % (11.0-15.5); WHITE BLOOD COUNT (AUTO) 8.1 K/uL (4.8-10.8)
[2023-05-25 11:30] LABS: CREATININE 0.9 mg/dL (0.5-1.5); POTASSIUM 3.5 mmol/L (3.5-5.1)
[2023-05-25 11:37] LABS: ALBUMIN 3.6 g/dL (3.5-5.0); BILIRUBIN,TOTAL 0.3 mg/dL (0.2-1.0); TOTAL PROTEIN, SERUM 7.9 g/dL (6.0-8.3)
[2023-05-25] MEDS: 0.9%NACL 1000ML 1,000 ML IV ONE (16:34)
[2023-05-25] MEDS: MORPHINE 2 MG SYG IVP ONE (16:34)
[2023-05-25] MEDS: ZOSYN 3.375GM +NS 50ML IV SCH (18:13)
[2023-05-25] MEDS ORDERED: ACETAMINOPHEN 325 MG TAB PO PRN (21:00)
[2023-05-25] MEDS ORDERED: ONDANSETRON 4MG INJ IV PRN (21:00)
[2023-05-25] MEDS ORDERED: MORPHINE 2 MG SYG IVP PRN (21:00)
[2023-05-25] MEDS: CEFTRIAXONE 1G VIAL ONE (22:54)
[2023-05-25] MEDS: FAMOTIDINE 20MG VIAL IV SCH (22:54)
[2023-05-25] MEDS: LACTATED RINGERS 1000ML 1,000 ML IV SCH (22:54)
[2023-05-25] MEDS: CEFTRIAXONE 1G VIAL 1 GM in 0.9%NACL 50ML 50 ML IV SCH (22:54)
[2023-05-25 23:30] VITALS: BP 164/86; PULSE 87; RESP 18
[2023-05-25 23:32] VITALS: O2SAT 98
[2023-05-26 03:00] VITALS: BP 156/80; PULSE 96; RESP 18
[2023-05-26 06:08] LABS: BASOPHILS # (AUTO) 0.06 K/uL (0.00-0.20); BASOPHILS % (AUTO) 0.9 % (0.0-5.0); EOSINOPHILS # (AUTO) 0.09 K/uL (0.00-0.70); EOSINOPHILS % (AUTO) 1.3 % (0.0-8.0); HEMATOCRIT 34.7 % (36-48); IMMATURE GRANULOCYTE ABSOLUTE 0.02 K/uL (0-1); LYMPHOCYTES # (AUTO) 1.1 K/uL (1.0-4.8); LYMPHOCYTES % (AUTO) 15.4 % (21.0-51.0); MEAN CORPUSCULAR HEMOGLOBIN 24.2 pg (27.0-33.0); MEAN CORPUSCULAR HGB CONC 31.4 g/dL (32.0-36.0); MEAN CORPUSCULAR VOLUME 76.9 fL (79-99); MONOCYTES # (AUTO) 0.6 K/uL (0.1-1.0); MONOCYTES % (AUTO) 8.9 % (3.0-13.0); NEUTROPHILS # (AUTO) 5.1 K/uL (1.8-7.7); NEUTROPHILS % (AUTO) 73.2 % (40.0-77.0); PLATELET COUNT (AUTO) 254 K/uL (130-400); RED BLOOD CELL COUNT(AUTO) 4.51 MIL/uL (4.00-5.50); RED CELL DISTRIBUTION WIDTH 16.4 % (11.0-15.5); WHITE BLOOD COUNT (AUTO) 6.9 K/uL (4.8-10.8)
[2023-05-26 06:19] LABS: INR <= 0.93 (0.85-1.15); PROTHROMBIN TIME 10.6 SEC (9.6-11.6)
[2023-05-26 06:20] LABS: PARTIAL THROMBOPLASTIN TIME 27.3 SEC (26.3-35.5)
[2023-05-26 06:23] LABS: ALBUMIN 3.3 g/dL (3.5-5.0); BILIRUBIN,TOTAL 0.5 mg/dL (0.2-1.0); CREATININE 0.8 mg/dL (0.5-1.5); MAGNESIUM 1.7 mg/dL (1.80-2.40); POTASSIUM 3.2 mmol/L (3.5-5.1); TOTAL PROTEIN, SERUM 7.4 g/dL (6.0-8.3)
[2023-05-26 07:36] VITALS: BP 149/71; PULSE 71; RESP 18
[2023-05-26 08:00] VITALS: O2SAT 93
[2023-05-26] MEDS: CEFTRIAXONE 1G VIAL IVPB SCH (11:13)
[2023-05-26 12:00] VITALS: BP 128/71; PULSE 80; RESP 18
[2023-05-26 15:58] VITALS: BP 156/88; PULSE 75; RESP 18
[2023-05-26] MEDS: MAGNESIUM 2GM PREMIX 50ML 50 ML IV PRN (15:59)
[2023-05-26] MEDS: KCL 20 MEQ ERTAB PO ONE (15:59)
[2023-05-26] MEDS ORDERED: KCL 20 MEQ ERTAB PO PRN (16:00)
[2023-05-26] MEDS ORDERED: POTASSIUM CHLORIDE 20MEQ/100ML 100 ML IV PRN (16:00)
[2023-05-26] MEDS ORDERED: POTASSIUM CHLORIDE 10% ELIXIR 20 MEQ/15 ML UDCUP PO PRN (16:00)
[2023-05-26] MEDS: ACETAMINOPHEN 325 MG TAB PO PRN (16:31)
[2023-05-26 19:00] VITALS: BP 159/80; PULSE 76; RESP 18
== END 2023-05-26 20:15 | disposition home or self-care (01) ==
LOC: EDH 10:38 → INTOOBSV 20:45 → EDHIP 20:45 → 3CH 05-26 00:03
PROVIDERS: ADMIT Hospitalist; ATTEND Hospitalist
DX: N13.2 Hydronephrosis with renal and ureteral calculous obstruction (principal); N39.0 Urinary tract infection, site not specified; I10 Essential (primary) hypertension; R74.8 Abnormal levels of other serum enzymes; K59.00 Constipation, unspecified; E66.01 Morbid (severe) obesity due to excess calories; R11.2 Nausea with vomiting, unspecified; R31.9 Hematuria, unspecified; M19.90 Unspecified osteoarthritis, unspecified site; F32.A Depression, unspecified; E03.9 Hypothyroidism, unspecified; F41.9 Anxiety disorder, unspecified; G47.33 Obstructive sleep apnea (adult) (pediatric); E78.5 Hyperlipidemia, unspecified; Z68.43 Body mass index [BMI] 50.0-59.9, adult; Z90.49 Acquired absence of other specified parts of digestive tract; Z88.6 Allergy status to analgesic agent; Z79.899 Other long term (current) drug therapy; Z87.442 Personal history of urinary calculi
CPT/HCPCS: 96361; 96365; 96375; 96367 ×2; 99285; 80053 ×2; 83690; 85025 ×2; 87088; 81001; 36415 ×2; 74176; 96376; 96366; 83735; 85610; 85730; J7120; J3490 ×2; J2270; J7030; J0696 ×2; J2543; G0378 ×6; J3475

== ENCOUNTER → 2023-08-20 | Outpatient (CLI) | payer OTHER, MEDICARE ==
[~2023-08-20] MED LIST changes: +FLUO-418 PO; -FLUO20CA36 PO; -TAMS-1 PO
== END | disposition home or self-care (01) ==
LOC: RAH 13:41
DX: N13.2 Hydronephrosis with renal and ureteral calculous obstruction (principal); K57.30 Diverticulosis of large intestine without perforation or abscess without bleeding; N28.89 Other specified disorders of kidney and ureter; N39.0 Urinary tract infection, site not specified
CPT/HCPCS: 74176

== ENCOUNTER → 2023-08-30 | Outpatient (CLI) | payer OTHER, MEDICARE ==
[2023-08-30 12:45] LABS: ALBUMIN 3.5 g/dL (3.5-5.0); BILIRUBIN,TOTAL 0.2 mg/dL (0.2-1.0); CREATININE 0.9 mg/dL (0.5-1.0); MAGNESIUM 1.7 mg/dL (1.80-2.40); POTASSIUM 4.2 mmol/L (3.5-5.1); TOTAL PROTEIN, SERUM 8.6 g/dL (6.0-8.3)
== END | disposition home or self-care (01) ==
LOC: LAB 09:52
PROVIDERS: ATTEND Internal Medicine Cardiovascular Disease
DX: R06.09 Other forms of dyspnea (principal); R07.9 Chest pain, unspecified; R01.1 Cardiac murmur, unspecified
CPT/HCPCS: 36415; 80053; 83735; 83880

== ENCOUNTER → 2023-10-02 | Outpatient (CLI) | payer OTHER, MEDICARE | END | disposition home or self-care (01) | LOC: SHCH 08:48 | PROVIDERS: ATTEND Internal Medicine Cardiovascular Disease | DX: I08.0 Rheumatic disorders of both mitral and aortic valves (principal); R06.02 Shortness of breath; R01.1 Cardiac murmur, unspecified | CPT/HCPCS: 93306 ==

== ENCOUNTER → 2023-11-16 | Outpatient (CLI) | payer OTHER, MEDICARE ==
[2023-11-16] MEDS: REGADENOSON 0.4 MG/5 ML PF SYG IVP ONE (11:22)
== END | disposition home or self-care (01) ==
LOC: SHCH 08:58
PROVIDERS: ATTEND Internal Medicine Cardiovascular Disease
DX: R07.9 Chest pain, unspecified (principal)
CPT/HCPCS: 78452; 93017; J2785; A9500 ×2

== ENCOUNTER 2023-11-19 04:42 | Inpatient (IN) | payer OTHER, MEDICARE ==
[~2023-11-19] VITALS: Ht 152.4 cm; Wt 134.5 kg
[2023-11-19] VITALS (20 sets, daily range): BP systolic 115–180; BP diastolic 59–88; PULSE 68–89; RESP 18–20; TEMP 97.4–98.8; O2SAT 99
[2023-11-19 05:04] LABS: BASOPHILS # (AUTO) 0.08 K/uL (0.00-0.20); BASOPHILS % (AUTO) 0.8 % (0.0-5.0); EOSINOPHILS # (AUTO) 0.17 K/uL (0.00-0.70); EOSINOPHILS % (AUTO) 1.7 % (0.0-8.0); IMMATURE GRANULOCYTE ABSOLUTE 0.06 K/uL (0-1); LYMPHOCYTES # (AUTO) 1.5 K/uL (1.0-4.8); LYMPHOCYTES % (AUTO) 15.2 % (21.0-51.0); MEAN CORPUSCULAR HEMOGLOBIN 26.3 pg (27.0-33.0); MEAN CORPUSCULAR HGB CONC 32.5 g/dL (32.0-36.0); MEAN CORPUSCULAR VOLUME 80.9 fL (79-99); MONOCYTES # (AUTO) 0.7 K/uL (0.1-1.0); MONOCYTES % (AUTO) 6.9 % (3.0-13.0); NEUTROPHILS # (AUTO) 7.3 K/uL (1.8-7.7); NEUTROPHILS % (AUTO) 74.8 % (40.0-77.0); PLATELET COUNT (AUTO) 363 K/uL (130-400); RED BLOOD CELL COUNT(AUTO) 4.45 MIL/uL (4.00-5.50); RED CELL DISTRIBUTION WIDTH 13.7 % (11.0-15.5); WHITE BLOOD COUNT (AUTO) 9.8 K/uL (4.8-10.8)
[2023-11-19 05:12] LABS: APPEARANCE,URINE CLEAR (CLEAR); BILIRUBIN,URINE NEGATIVE (NEGATIVE); COLOR,URINE LIGHT-YELLOW (YELLOW); GLUCOSE, URINE (UA) NEGATIVE (NEGATIVE); KETONES,URINE NEGATIVE (NEGATIVE); LEUKOCYTE ESTERASE ,URINE 75 Leu/uL (NEGATIVE); NITRATE,URINE NEGATIVE (NEGATIVE); OCCULT BLOOD,URINE NEGATIVE (NEGATIVE); PH,URINE 6.5 (5.0-8.0); PROTEIN,URINE 10 mg/dL (NEGATIVE); UROBILINOGEN,URINE 0.2 mg/dL (0.2-1.0)
[2023-11-19 05:12] LABS: CREATININE 0.7 mg/dL (0.5-1.0); POTASSIUM 3.7 mmol/L (3.5-5.1)
[2023-11-19] MEDS: ONDANSETRON 4MG INJ IVP ONE (05:18)
[2023-11-19] MEDS: morPHINE 2 MG SYG IVP ONE (05:18)
[2023-11-19] MEDS: LACTATED RINGERS 1000ML 1,000 ML IV ONE (05:19)
[2023-11-19 05:41] LABS: ADD UA MICROSCOPIC YES
[2023-11-19 05:42] LABS: BACTERIA,URINE FEW /HPF (None Seen); MUCUS,URINE RARE LPF (None Seen); SQUAMOUS EPITHELIAL CELL,UR FEW /HPF (0-2)
[2023-11-19] MEDS ORDERED: CARV6.25 PO (06:44)
[2023-11-19] MEDS ORDERED: CHOL200079 PO (06:44)
[2023-11-19] MEDS ORDERED: FERR-82 PO (06:44)
[2023-11-19] MEDS ORDERED: OMEP40CA21 PO (06:44)
[2023-11-19] MEDS ORDERED: AEC81 PO (06:44)
[2023-11-19] MEDS: cefTRIAXone 1G VIAL IVPB ONE (06:48)
[2023-11-19] MEDS: doCUSate SODIUM 100 MG CAP PO SCH (08:14)
[2023-11-19] MEDS: (Cholecalciferol (Vitamin D3) (Vitamin D3) 125 MCG) PO SCH (08:15)
[2023-11-19] MEDS: MELOXICAM 15 MG PO SCH (08:15)
[2023-11-19] MEDS: FERROUS SULFATE 325 MG TABLET.DR PO SCH (08:15)
[2023-11-19] MEDS: carVEDIlol 6.25 MG TABLET PO SCH (08:15)
[2023-11-19] MEDS: FLUoxetine HCL 20 MG CAPSULE PO SCH (08:15)
[2023-11-19] MEDS: FOLIC ACID PO SCH (08:16)
[2023-11-19] MEDS: PANTOPRAZOLE 40 MG TAB DR PO SCH (08:16)
[2023-11-19] MEDS: amLODIPine 5 MG TAB PO SCH (08:16)
[2023-11-19] MEDS: MULTIVIT MINERALS PO SCH (08:16)
[2023-11-19] MEDS: LISINOPRIL 40 MG TABLET PO SCH (08:16)
[2023-11-19] MEDS ORDERED: DiphenhydrAMINE HCL 25 MG CAPSULE PO PRN (08:30)
[2023-11-19] MEDS ORDERED: MAG/ALUM/SIMETH 30 ML UDCUP PO PRN (08:30)
[2023-11-19] MEDS ORDERED: acetaMINOPHEN 325 MG TAB PO PRN (08:30)
[2023-11-19] MEDS ORDERED: LACTULOSE 20 GM/30 ML UDCUP PO PRN (08:30)
[2023-11-19] MEDS ORDERED: morPHINE 2 MG SYG IV PRN (08:30)
[2023-11-19] MEDS ORDERED: hydrALAZine 20MG/ML VIAL IV PRN (08:30)
[2023-11-19] MEDS ORDERED: guaiFENesin-DM 200/20MG 10ML PO PRN (08:30)
[2023-11-19] MEDS ORDERED: NITROGLYCERIN 0.4 MG SL TAB SL PRN (08:30)
[2023-11-19] MEDS: LACTATED RINGERS 1000ML 1,000 ML IV SCH (08:38)
[2023-11-19] MEDS ORDERED: NON-FORMULARY MEDICATION 1 EACH (Cholecalciferol (Vitamin D3) (Vitamin D3) 50 MCG) PO SCH (09:00)
[2023-11-19] MEDS ORDERED: ASPIRIN 81 MG EC TAB PO SCH (09:00)
[2023-11-19] MEDS: morPHINE 4 MG SYG IV PRN (11:27)
[2023-11-19] MEDS ORDERED: MIDAZOLAM HCL 1 MG/ML 2ML VIAL ONE (16:19)
[2023-11-19] MEDS ORDERED: SUCCINYLCHOLINE CHLORIDE 20 MG/ML 10 ML VIAL ONE (16:20)
[2023-11-19] MEDS ORDERED: rocuRONium bROMide 10MG/1ML 5ML VL ONE (16:20)
[2023-11-19] MEDS ORDERED: proPOFol 10 MG/ML 20ML VIAL IV ONE (16:20)
[2023-11-19] MEDS ORDERED: FENTanyl CITRate PF 50 MCG/1 ML 2ML VIAL ONE (16:22)
[2023-11-19] MEDS: ONDANSETRON 4MG INJ IV PRN (18:40)
[2023-11-19] MEDS: tamSULOsin HCL 0.4 MG CAP.ER.24H PO ONE (18:40)
[2023-11-19] MEDS: ZOLPidem TARTrate 5 MG TAB PO SCH (20:57)
[2023-11-19] MEDS: simVASTatin 20 MG TABLET PO SCH (20:58)
[2023-11-20] VITALS (8 sets, daily range): BP systolic 120–165; BP diastolic 62–80; PULSE 74–86; RESP 18–20; TEMP 98.9–99.3; O2SAT 93–94
[2023-11-20] MEDS: levoTHYROxine 112 MCG TABLET PO SCH (05:52)
[2023-11-20] MEDS: cefTRIAXone 1G VIAL IV SCH (09:06)
[2023-11-20 10:27] LABS: BASOPHILS # (AUTO) 0.05 K/uL (0.00-0.20); BASOPHILS % (AUTO) 0.4 % (0.0-5.0); EOSINOPHILS # (AUTO) 0.04 K/uL (0.00-0.70); EOSINOPHILS % (AUTO) 0.3 % (0.0-8.0); HEMATOCRIT 35.6 % (36-48); IMMATURE GRANULOCYTE ABSOLUTE 0.04 K/uL (0-1); LYMPHOCYTES # (AUTO) 1.2 K/uL (1.0-4.8); LYMPHOCYTES % (AUTO) 9.5 % (21.0-51.0); MEAN CORPUSCULAR HEMOGLOBIN 26.5 pg (27.0-33.0); MEAN CORPUSCULAR HGB CONC 31.7 g/dL (32.0-36.0); MEAN CORPUSCULAR VOLUME 83.4 fL (79-99); MONOCYTES # (AUTO) 0.8 K/uL (0.1-1.0); MONOCYTES % (AUTO) 6.3 % (3.0-13.0); NEUTROPHILS # (AUTO) 10.5 K/uL (1.8-7.7); NEUTROPHILS % (AUTO) 83.2 % (40.0-77.0); PLATELET COUNT (AUTO) 321 K/uL (130-400); RED BLOOD CELL COUNT(AUTO) 4.27 MIL/uL (4.00-5.50); RED CELL DISTRIBUTION WIDTH 13.9 % (11.0-15.5); WHITE BLOOD COUNT (AUTO) 12.6 K/uL (4.8-10.8)
[2023-11-21] VITALS: BP 152/63; PULSE 78; RESP 18; TEMP 99.6
[2023-11-21 04:00] VITALS: BP 124/76; PULSE 79; RESP 18; TEMP 98.7
[2023-11-21 05:30] LABS: BASOPHILS # (AUTO) 0.07 K/uL (0.00-0.20); BASOPHILS % (AUTO) 0.6 % (0.0-5.0); EOSINOPHILS # (AUTO) 0.18 K/uL (0.00-0.70); EOSINOPHILS % (AUTO) 1.5 % (0.0-8.0); HEMATOCRIT 37.6 % (36-48); IMMATURE GRANULOCYTE ABSOLUTE 0.06 K/uL (0-1); LYMPHOCYTES # (AUTO) 1.4 K/uL (1.0-4.8); MEAN CORPUSCULAR HEMOGLOBIN 25.9 pg (27.0-33.0); MEAN CORPUSCULAR HGB CONC 31.4 g/dL (32.0-36.0); MEAN CORPUSCULAR VOLUME 82.5 fL (79-99); MONOCYTES # (AUTO) 0.8 K/uL (0.1-1.0); MONOCYTES % (AUTO) 6.7 % (3.0-13.0); NEUTROPHILS # (AUTO) 9.8 K/uL (1.8-7.7); NEUTROPHILS % (AUTO) 79.7 % (40.0-77.0); PLATELET COUNT (AUTO) 417 K/uL (130-400); RED BLOOD CELL COUNT(AUTO) 4.56 MIL/uL (4.00-5.50); RED CELL DISTRIBUTION WIDTH 13.8 % (11.0-15.5); WHITE BLOOD COUNT (AUTO) 12.3 K/uL (4.8-10.8)
[2023-11-21 05:38] LABS: CREATININE 0.9 mg/dL (0.5-1.0); POTASSIUM 3.6 mmol/L (3.5-5.1)
[2023-11-21] MEDS: KCL 20 MEQ ERTAB PO PRN (05:49)
[2023-11-21] MEDS ORDERED: POTASSIUM CHLORIDE 20MEQ/100ML 100 ML IV PRN (06:00)
[2023-11-21] MEDS ORDERED: POTASSIUM CHLORIDE 10% ELIXIR 20 MEQ/15 ML UDCUP PO PRN (06:00)
[2023-11-21] MEDS ORDERED: MAGNESIUM 2GM PREMIX 50ML 50 ML IV PRN (06:00)
[2023-11-21 08:00] VITALS: BP 137/72; PULSE 85; RESP 18; TEMP 99.8; O2SAT 93
[2023-11-21 10:04] VITALS: BP 137/72
[2023-11-21] MEDS ORDERED: AMOX1TAB16 PO (12:54)
[2023-12-03 13:56] LABS: STONE SIZE 3X3 mm; STONE WEIGHT 53 mg
[2023-12-03 13:59] LABS: STONE COLOR BROWN; STONE COMPOSITION PERCENTAGE
== END 2023-11-21 15:25 | disposition home or self-care (01) | DRG 660 ==
LOC: EDH 04:42 → EDHIP 08:03 → 4CH 09:20
PROVIDERS: ADMIT Hospitalist; ATTEND Hospitalist
PROC: 0TC68ZZ Extirpation of Matter from Right Ureter, Via Natural or Artificial Opening Endoscopic (ICD-10-PCS; principal; 2023-11-19 16:19)
PROC: 0T768DZ Dilation of Right Ureter with Intraluminal Device, Via Natural or Artificial Opening Endoscopic (ICD-10-PCS; 2023-11-19 16:19)
DX: N13.6 Pyonephrosis (principal); Z68.43 Body mass index [BMI] 50.0-59.9, adult; I10 Essential (primary) hypertension; E78.5 Hyperlipidemia, unspecified; E66.01 Morbid (severe) obesity due to excess calories; F32.A Depression, unspecified; F41.9 Anxiety disorder, unspecified; G47.00 Insomnia, unspecified; E03.9 Hypothyroidism, unspecified; Z79.899 Other long term (current) drug therapy; Z88.8 Allergy status to other drugs, medicaments and biological substances
CPT/HCPCS: 36415; 74176; 74420; 80048; 81001; 82360; 83690; 85025; 87086; 96365; 96375; C1758; C1769; C2617; G0378; J0330; J0696; J2250; J2270; J2405; J2704; J3010; J3490; J7120; A4358

== ENCOUNTER → 2023-12-28 | Outpatient (CLI) | payer OTHER, MEDICARE ==
[~2023-12-28] VITALS: Ht 152.4 cm; Wt 137.0 kg
[~2023-12-28] MED LIST changes: +AEC81 PO; +AMOX1TAB16 PO; +BACL10TA PO; +CARV6.25 PO; +CHOL200079 PO; +FERR-82 PO; +METF-444 PO; +OMEP40CA21 PO; +ONDA-243 PO
[2023-12-28 10:35] LABS: BASOPHILS # (AUTO) 0.06 K/uL (0.00-0.20); BASOPHILS % (AUTO) 0.9 % (0.0-5.0); EOSINOPHILS # (AUTO) 0.11 K/uL (0.00-0.70); EOSINOPHILS % (AUTO) 1.7 % (0.0-8.0); HEMATOCRIT 41.2 % (36-48); IMMATURE GRANULOCYTE ABSOLUTE 0.02 K/uL (0-1); LYMPHOCYTES # (AUTO) 1.5 K/uL (1.0-4.8); MEAN CORPUSCULAR HEMOGLOBIN 26.3 pg (27.0-33.0); MEAN CORPUSCULAR VOLUME 82.2 fL (79-99); MONOCYTES # (AUTO) 0.4 K/uL (0.1-1.0); MONOCYTES % (AUTO) 6.3 % (3.0-13.0); NEUTROPHILS # (AUTO) 4.5 K/uL (1.8-7.7); NEUTROPHILS % (AUTO) 67.8 % (40.0-77.0); PLATELET COUNT (AUTO) 292 K/uL (130-400); RED BLOOD CELL COUNT(AUTO) 5.01 MIL/uL (4.00-5.50); RED CELL DISTRIBUTION WIDTH 14.6 % (11.0-15.5); WHITE BLOOD COUNT (AUTO) 6.6 K/uL (4.8-10.8)
[2023-12-28 10:57] LABS: CREATININE 0.8 mg/dL (0.5-1.0); POTASSIUM 3.9 mmol/L (3.5-5.1)
[2023-12-28 11:16] VITALS: BP 196/97; PULSE 68; RESP 20; TEMP 98.1
[2023-12-28 11:31] LABS: INR 0.94 (0.85-1.15); PROTHROMBIN TIME 10.2 SEC (9.6-11.6)
[2023-12-28 11:33] LABS: PARTIAL THROMBOPLASTIN TIME 25.9 SEC (26.3-35.5)
[2023-12-28 11:47] LABS: B-TYPE NATRIURETIC PEPTIDE 37 pg/mL (0-100)
== END | disposition home or self-care (01) ==
LOC: EDSTATUS 09:00 → DAH 10:00
PROVIDERS: ATTEND Internal Medicine Cardiovascular Disease
DX: Z01.818 Encounter for other preprocedural examination (principal); I25.10 Atherosclerotic heart disease of native coronary artery without angina pectoris; Z88.6 Allergy status to analgesic agent; Z79.01 Long term (current) use of anticoagulants; Z53.8 Procedure and treatment not carried out for other reasons
CPT/HCPCS: 36415; 71045; 80048; 83880; 85025; 85610; 85730; 93005

== ENCOUNTER → 2024-08-25 | Outpatient (CLI) | payer OTHER, MEDICAID ==
[~2024-08-25] MED LIST changes: -AMOX1TAB16 PO; -CHOL500051 PO; -MELO-108 PO; -METO5TAB2 PO; -MULT200T10 PO
== END | disposition home or self-care (01) ==
LOC: LAB 11:27
PROVIDERS: ATTEND Internal Medicine Gastroenterology
DX: R10.32 Left lower quadrant pain (principal)
CPT/HCPCS: 36415; 82565; 84520